=== PATIENT | female | born 1955 | race Caucasian/White ===

== ENCOUNTER → 2020-06-14 | Outpatient (CLI) | payer OTHER ==
[~2020-06-14] MED LIST: CLARITIN10 M2; DESYREL50 MG; FEMHRT 1-5 TAB1 EACH; FUROSEMIDE 20 M20 M1; K-DUR 20 MEQ T20 MEQ; OMEPRAZOLE; PERCOCET 5-3251 EACH PO; TUSSIN COU10 MG/5 ML; VITAMIN D1000 UNI1; ZPAK PO
== END ==
LOC: M.RAD 14:50
PROVIDERS: ATTEND Internal Medicine Rheumatology
DX: M19.042 Primary osteoarthritis, left hand (principal); M16.0 Bilateral primary osteoarthritis of hip; M19.041 Primary osteoarthritis, right hand; M48.07 Spinal stenosis, lumbosacral region

== ENCOUNTER → 2020-12-29 | Outpatient (CLI) | payer OTHER | LOC: M.CT 12-23 11:00 | PROVIDERS: ATTEND Allergy & Immunology | DX: J34.2 Deviated nasal septum (principal); J32.9 Chronic sinusitis, unspecified ==

== ENCOUNTER → 2021-02-09 | Outpatient (CLI) | payer OTHER | LOC: M.MRI 13:12 | PROVIDERS: ATTEND Orthopaedic Surgery | DX: S83.241A Other tear of medial meniscus, current injury, right knee, initial encounter (principal); S83.281A Other tear of lateral meniscus, current injury, right knee, initial encounter; M94.261 Chondromalacia, right knee; M25.861 Other specified joint disorders, right knee; X58.XXXA Exposure to other specified factors, initial encounter; Y93.89 Activity, other specified; Y92.89 Other specified places as the place of occurrence of the external cause; Y99.8 Other external cause status ==

== ENCOUNTER → 2021-05-29 | Outpatient (CLI) | payer OTHER | LOC: M.RAD 12:57 | PROVIDERS: ATTEND Internal Medicine | DX: M85.88 Other specified disorders of bone density and structure, other site (principal); Z78.0 Asymptomatic menopausal state ==